=== PATIENT | male | born 1940 | race Hispanic/Latino ===

== ENCOUNTER 2017-05-30 12:51 | Outpatient (CLI) | payer MEDICARE ==
[2017-05-30 14:01] LABS: INR-International Normal Ratio 2.4; Prothrombin Time 26.6 SEC (12.0-14.7)
[2017-05-30 14:12] LABS: ALT (SGPT) 31 U/L (8-55); AST (SGOT) 24 U/L (5-34); Alkaline Phosphatase 74 U/L (40-150); Anion Gap 13 mmol/L (10-20); BUN (Urea Nitrogen) 20 mg/dL (8.4-25.7); Bilirubin, Total 0.6 mg/dL (0.2-1.2); Calc. Creatinine Clearance 0 mL/min (70-130); Calcium 9.3 mg/dL (7.8-10.44); Carbon Dioxide 25 mmol/L (23-31); Cardiac Risk 6.2 (Less than 4.5); Chloride 109 mmol/L (98-107); Cholesterol 216 mg/dl (< 200 Desired); Estimated GFR-MDRD 55; Globulin 2.9 g/dL (2.4-3.5); Glucose 103 mg/dL (83-110); HDL Cholesterol 35 mg/dL (>60 Neg Risk); LDL Cholesterol, Calculated 133 mg/dL; Potassium 4.1 mmol/L (3.5-5.1); Protein, Total 6.9 g/dL (5.8-8.1); Sodium 143 mmol/L (136-145); Triglycerides 241 mg/dL (Less than 150)
[2017-05-30 14:19] LABS: #Basophils 0.1 thou/uL (0.0-0.2); #Eosinphils 0.2 thou/uL (0.0-0.7); #Lymphocytes 1.9 thou/uL (1.20-3.40); #Monocytes 0.6 thou/uL (0.11-0.59); #Neutrophils 4.4 thou/uL (1.40-6.50); %Basophils 0.8 % (0.0-1.0); %Lymphocytes 26.8 % (21.0-51.0); %Neutrophils 61.4 % (42.0-75.0); Hemoglobin 15.5 g/dL (14.0-18.0); Mean Corpuscular HGB CONC 33.4 g/dL (32.0-36.0); Mean Corpuscular Hemoglobin 29.8 pg (27.0-31.0); Mean Corpuscular Volume 89.3 fl (80.0-94.0); Mean Platelet Volume 7.7 fL (7.4-10.4); Platelet Count 184 thou/uL (130-400); RBC Distribution Width 13.6 % (11.5-14.5); Red Blood Cell (RBC) Count 5.19 mill/uL (4.70-6.10); White Blood Cell (WBC) Count 7.1 thou/uL (4.8-10.8)
== END 2017-05-30 12:52 | disposition home or self-care (01) ==
LOC: MADLABBHPM 12:51
PROVIDERS: ATTEND Family Medicine
DX: Z51.81 Encounter for therapeutic drug level monitoring (principal); I10 Essential (primary) hypertension; Z79.01 Long term (current) use of anticoagulants; Z79.899 Other long term (current) drug therapy
CPT/HCPCS: 36415; 80053; 80061; 85025; 85610

== ENCOUNTER 2017-07-10 12:59 | Outpatient (CLI) | payer MEDICARE ==
[2017-07-10 13:36] LABS: INR-International Normal Ratio 1.8; Prothrombin Time 21.5 SEC (12.0-14.7)
[2017-07-10 14:08] LABS: Band 1 % (5-11); Eosinophils 3 % (0-10); Hemoglobin 14.7 g/dL (14.0-18.0); Lymphocytes 23 % (21-51); MDiff Complete? YES; Mean Corpuscular HGB CONC 32.9 g/dL (32.0-36.0); Mean Corpuscular Hemoglobin 28.8 pg (27.0-31.0); Mean Corpuscular Volume 87.7 fl (80.0-94.0); Mean Platelet Volume 6.9 fL (7.4-10.4); Monocytes 3 % (0-10); Neutrophil 70 % (42-75); PLT Morphology Comment Appears Adequate; Platelet Count 215 thou/uL (130-400); Red Blood Cell (RBC) Count 5.08 mill/uL (4.70-6.10); White Blood Cell (WBC) Count 7.2 thou/uL (4.8-10.8)
== END 2017-07-10 13:00 | disposition home or self-care (01) ==
LOC: MADLABBHPM 12:59
PROVIDERS: ATTEND Family Medicine
DX: Z51.81 Encounter for therapeutic drug level monitoring (principal); Z79.01 Long term (current) use of anticoagulants
CPT/HCPCS: 36415; 85025; 85610

== ENCOUNTER 2017-08-03 12:45 | Outpatient (CLI) | payer MEDICARE ==
[2017-08-03 13:49] LABS: #Eosinphils 0.2 thou/uL (0.0-0.7); #Monocytes 0.7 thou/uL (0.11-0.59); #Neutrophils 4.1 thou/uL (1.40-6.50); %Basophils 0.7 % (0.0-1.0); %Eosinophils 2.9 % (0.0-10.0); %Lymphocytes 28.4 % (21.0-51.0); %Monocytes 9.4 % (0.0-10.0); %Neutrophils 58.6 % (42.0-75.0); Hemoglobin 14.6 g/dL (14.0-18.0); INR-International Normal Ratio 2.7; Mean Corpuscular HGB CONC 33.1 g/dL (32.0-36.0); Mean Corpuscular Hemoglobin 29.1 pg (27.0-31.0); Mean Corpuscular Volume 87.9 fl (80.0-94.0); Mean Platelet Volume 7.8 fL (7.4-10.4); Platelet Count 156 thou/uL (130-400); Prothrombin Time 30.1 SEC (12.0-14.7); RBC Distribution Width 12.9 % (11.5-14.5); Red Blood Cell (RBC) Count 5.03 mill/uL (4.70-6.10); White Blood Cell (WBC) Count 6.9 thou/uL (4.8-10.8)
== END 2017-08-03 12:46 | disposition home or self-care (01) ==
LOC: MADLABBHPM 12:45
PROVIDERS: ATTEND Family Medicine
DX: Z51.81 Encounter for therapeutic drug level monitoring (principal); Z79.01 Long term (current) use of anticoagulants
CPT/HCPCS: 36415; 85025; 85610

== ENCOUNTER 2017-09-18 13:03 | Outpatient (CLI) | payer MEDICARE ==
[2017-09-18 13:22] LABS: #Basophils 0.1 thou/uL (0.0-0.2); #Eosinphils 0.1 thou/uL (0.0-0.7); #Lymphocytes 2.1 thou/uL (1.20-3.40); #Monocytes 0.7 thou/uL (0.11-0.59); #Neutrophils 4.2 thou/uL (1.40-6.50); %Basophils 1.1 % (0.0-1.0); %Lymphocytes 29.3 % (21.0-51.0); %Monocytes 9.7 % (0.0-10.0); %Neutrophils 57.9 % (42.0-75.0); Hemoglobin 14.7 g/dL (14.0-18.0); Mean Corpuscular HGB CONC 33.4 g/dL (32.0-36.0); Mean Corpuscular Hemoglobin 29.5 pg (27.0-31.0); Mean Corpuscular Volume 88.2 fL (78.0-98.0); Mean Platelet Volume 7.4 fL (7.4-10.4); Platelet Count 187 thou/uL (130-400); RBC Distribution Width 12.9 % (11.5-14.5); Red Blood Cell (RBC) Count 4.99 mill/uL (4.70-6.10); White Blood Cell (WBC) Count 7.2 thou/uL (4.8-10.8)
[2017-09-18 13:28] LABS: INR-International Normal Ratio 2.6; Prothrombin Time 27.9 SEC (12.0-14.7)
== END 2017-09-18 13:04 | disposition home or self-care (01) ==
LOC: MADLABBHPM 13:03
PROVIDERS: ATTEND Family Medicine
DX: Z51.81 Encounter for therapeutic drug level monitoring (principal); Z79.01 Long term (current) use of anticoagulants
CPT/HCPCS: 36415; 85025; 85610

== ENCOUNTER 2017-12-15 14:25 | Outpatient (CLI) | payer MEDICARE, MEDICAID ==
[2017-12-15 14:45] LABS: Prothrombin Time 22.4 SEC (12.0-14.7)
== END 2017-12-15 14:26 | disposition home or self-care (01) ==
LOC: MADLABBHPM 14:25
PROVIDERS: ATTEND Family Medicine
DX: Z51.81 Encounter for therapeutic drug level monitoring (principal); Z79.01 Long term (current) use of anticoagulants
CPT/HCPCS: 36415; 85610

== ENCOUNTER 2017-12-21 15:46 | Emergency (ER) | payer MEDICARE, MEDICAID | END 2017-12-21 16:35 | disposition home or self-care (01) | LOC: MADERS 15:46 | DX: K52.9 Noninfective gastroenteritis and colitis, unspecified (principal); Z86.718 Personal history of other venous thrombosis and embolism; I10 Essential (primary) hypertension; Z79.899 Other long term (current) drug therapy | CPT/HCPCS: 99283 ==

== ENCOUNTER 2017-12-21 23:53 | Emergency (ER) | payer MEDICARE, MEDICAID ==
[~2017-12-21 23:53] MED LIST: Sodium Chloride 0.9% 1,000 ML BAG ONE
[2017-12-22] MEDS ORDERED: Dicyclomine 10 MG CAP ONE (00:10)
[2017-12-22 00:51] LABS: ALT (SGPT) 18 U/L (8-55); AST (SGOT) 17 U/L (5-34); Albumin 3.9 g/dL (3.4-4.8); Alkaline Phosphatase 76 U/L (40-150); Anion Gap 16 mmol/L (10-20); BUN (Urea Nitrogen) 24 mg/dL (8.4-25.7); Bilirubin, Total 0.6 mg/dL (0.2-1.2); Calc. Creatinine Clearance 0 mL/min (70-130); Carbon Dioxide 27 mmol/L (23-31); Chloride 103 mmol/L (98-107); Estimated GFR-MDRD 37; Globulin 2.9 g/dL (2.4-3.5); Glucose 111 mg/dL (83-110); Potassium 4.1 mmol/L (3.5-5.1); Protein, Total 6.8 g/dL (5.8-8.1); Sodium 142 mmol/L (136-145)
[2017-12-22 00:57] LABS: Band 1 % (5-11); Eosinophils 1 % (0-10); Hemoglobin 14.7 g/dL (14.0-18.0); Lymphocytes 20 % (21-51); MDiff Complete? YES; Mean Corpuscular HGB CONC 33.1 g/dL (32.0-36.0); Mean Corpuscular Hemoglobin 29.8 pg (27.0-31.0); Mean Corpuscular Volume 89.9 fL (78.0-98.0); Mean Platelet Volume 7.9 fL (7.4-10.4); Monocytes 12 % (0-10); Neutrophil 56 % (42-75); PLT Morphology Comment Appears Adequate; Platelet Count 196 thou/uL (130-400); RBC Distribution Width 12.9 % (11.5-14.5); RBC Morphology Normal; Reactive Lymphocytes 10 % (0-10); Red Blood Cell (RBC) Count 4.95 mill/uL (4.70-6.10); White Blood Cell (WBC) Count 8.6 thou/uL (4.8-10.8)
[2017-12-22] MEDS ORDERED: Morphine 4 MG/ML VIAL ONE (02:07)
[2017-12-22] MEDS ORDERED: Ondansetron PF 4 MG/2 ML Vial ONE (02:08)
[2017-12-22 02:14] LABS: INR-International Normal Ratio 2.8; PTT 49.8 SEC (22.9-36.1); Prothrombin Time 29.3 SEC (12.0-14.7)
--- NOTE | 2017-12-22 08:23 | CT ---
PRELIMINARY REPORT/[facility]/EMERGENTY AFTER-HOURS PROCEDURE CT Abdomen and Pelvis Without Intravenous Contrast EXAM DATE/TIME: 12/22/2017 12:50 AM CLINICAL HISTORY: 77 years old, male; Pain; Abdominal pain TECHNIQUE: Axial computed tomography images of the abdomen and pelvis without intravenous contrast. All CT scans at this facility use at least one of these dose optimization techniques: automated exposure control; mA and/or kV adjustment per patient size (includes targeted exams where dose is matched to clinical indication); or iterative reconstruction. COMPARISON: No relevant prior studies available. FINDINGS: Lower thorax: Minimal bibasilar atelectasis and/or scarring. Small-sized hiatal hernia. ABDOMEN: Liver: Normal. Gallbladder and bile ducts: Normal Pancreas: Normal. Spleen: Normal. Adrenals: Normal. Kidneys and ureters: Bilateral simple renal cysts, the largest on the left measuring approximately 2. 5 cm in diameter. Stomach and bowel: Scattered colonic diverticulosis. Multiple loops of moderately dilated mid small b owel, with apparent focal transition to normal caliber small bowel within the right abdomen, compatib le with small bowel obstruction. Appendix: Appendix is normal. PELVIS: Bladder: Urinary bladder partially decompressed. Reproductive: Prostate gland is large, measuring 7.3 cm in AP diameter by 6.6 cm in transverse dimens ion. ABDOMEN and PELVIS: Intraperitoneal space: Normal. No free air. No significant fluid collection. Bones/joints: Multilevel thoracolumbar spine degenerative changes. Soft tissues: Small fat-containing inguinal hernias, without acute complications. Vasculature: Inferior vena cava filter in place. Lymph nodes: Normal. No enlarged lymph nodes. IMPRESSION: Multiple loops of moderately dilated mid small bowel, with apparent focal transition to normal calibe r small bowel within the right abdomen, compatible with small bowel obstruction. Thank you for allowing us to participate in the care of your patient. Dictated and Authenticated by: Ayo Franklin MD 12/22/2017 1:43 AM Central Time ([place] & [place]) FINAL REPORT CT ABDOMEN AND PELVIS WITHOUT CONTRAST: I agree with the preliminary report given by Dr. Ayo Franklin of [facility]. POS: [facility]
== END 2017-12-22 03:59 | disposition short-term general hospital (02) ==
LOC: MADERS 23:53
DX: K56.609 Unspecified intestinal obstruction, unspecified as to partial versus complete obstruction (principal); Z86.718 Personal history of other venous thrombosis and embolism; I10 Essential (primary) hypertension; Z79.899 Other long term (current) drug therapy
CPT/HCPCS: 36415; 74176; 80053; 83605; 85025; 85610; 85730; 86850; 86900; 86901; 96361; 96374; 96375; 99283; J2270; J2405; J7050

== ENCOUNTER 2018-02-28 12:07 | Outpatient (CLI) | payer MEDICARE, MEDICAID ==
[2018-02-28 13:02] LABS: INR-International Normal Ratio 2.5; Prothrombin Time 26.8 SEC (12.0-14.7)
== END 2018-02-28 12:08 | disposition home or self-care (01) ==
LOC: MADLABBHPM 12:07
PROVIDERS: ATTEND Family Medicine
DX: Z51.81 Encounter for therapeutic drug level monitoring (principal); Z79.01 Long term (current) use of anticoagulants
CPT/HCPCS: 36415; 85610

== ENCOUNTER 2018-04-25 08:58 | Outpatient (CLI) | payer MEDICAID, MEDICARE ==
[2018-04-25 09:32] LABS: ALT (SGPT) 29 U/L (8-55); AST (SGOT) 21 U/L (5-34); Albumin 4.3 g/dL (3.4-4.8); Alkaline Phosphatase 90 U/L (40-150); Anion Gap 11 mmol/L (10-20); BUN (Urea Nitrogen) 17 mg/dL (8.4-25.7); Bilirubin, Total 0.4 mg/dL (0.2-1.2); Calc. Creatinine Clearance 0 mL/min (70-130); Calcium 9.2 mg/dL (7.8-10.44); Carbon Dioxide 29 mmol/L (23-31); Cardiac Risk 4.2 (Less than 4.5); Chloride 108 mmol/L (98-107); Cholesterol 152 mg/dl (< 200 Desired); Estimated GFR-MDRD 54; Globulin 2.9 g/dL (2.4-3.5); Glucose 96 mg/dL (83-110); HDL Cholesterol 36 mg/dL (>60 Neg Risk); LDL Cholesterol, Calculated 83 mg/dL; Potassium 4.3 mmol/L (3.5-5.1); Protein, Total 7.2 g/dL (5.8-8.1); Sodium 144 mmol/L (136-145); Triglycerides 167 mg/dL (Less than 150); Uric Acid 6.8 mg/dL (3.5-7.2)
[2018-04-25 09:34] LABS: INR-International Normal Ratio 1.3; Prothrombin Time 15.9 SEC (12.0-14.7)
== END 2018-04-25 08:59 | disposition home or self-care (01) ==
LOC: MADLABBHPM 08:58
PROVIDERS: ATTEND Family Medicine
DX: Z51.81 Encounter for therapeutic drug level monitoring (principal); E78.5 Hyperlipidemia, unspecified; E79.0 Hyperuricemia without signs of inflammatory arthritis and tophaceous disease; Z79.01 Long term (current) use of anticoagulants
CPT/HCPCS: 36415; 80053; 80061; 84550; 85610

== ENCOUNTER 2018-05-11 11:02 | Outpatient (CLI) | payer MEDICARE ==
[2018-05-11 11:29] LABS: INR-International Normal Ratio 1.5; Prothrombin Time 17.9 SEC (12.0-14.7)
[2018-05-11 11:38] LABS: ALT (SGPT) 37 U/L (8-55); AST (SGOT) 29 U/L (5-34); Albumin 4.2 g/dL (3.4-4.8); Alkaline Phosphatase 85 U/L (40-150); Anion Gap 13 mmol/L (10-20); BUN (Urea Nitrogen) 17 mg/dL (8.4-25.7); Bilirubin, Total 0.5 mg/dL (0.2-1.2); Calc. Creatinine Clearance 0 mL/min (70-130); Calcium 9.2 mg/dL (7.8-10.44); Carbon Dioxide 23 mmol/L (23-31); Chloride 112 mmol/L (98-107); Estimated GFR-MDRD 60; Globulin 2.8 g/dL (2.4-3.5); Glucose 93 mg/dL (83-110); Potassium 4.2 mmol/L (3.5-5.1); Sodium 144 mmol/L (136-145)
== END 2018-05-11 11:03 | disposition home or self-care (01) ==
LOC: MADLABBHPM 11:02
PROVIDERS: ATTEND Family Medicine
DX: E03.9 Hypothyroidism, unspecified (principal); E78.5 Hyperlipidemia, unspecified
CPT/HCPCS: 36415; 80053; 84443; 85610

== ENCOUNTER 2018-05-23 14:03 | Outpatient (CLI) | payer MEDICARE ==
[2018-05-23 14:43] LABS: INR-International Normal Ratio 1.9; Prothrombin Time 21.8 SEC (12.0-14.7)
--- NOTE | 2018-05-23 16:17 | RAD ---
PA AND LATERAL OF THE CHEST: 05/23/18 INDICATION: Bronchitis. COMPARISON: Prior exam dated 12/22/17. FINDINGS: There is mild cardiomegaly. No definite air space consolidation, pleural effusion, or pneumothorax is evident. No acute osseous abnormality is evident. IMPRESSION: Mild cardiomegaly without evidence of cardiac decompensation. POS: [facility]
== END 2018-05-23 14:04 | disposition home or self-care (01) ==
LOC: MADLABBHPM 14:03
PROVIDERS: ATTEND Family Medicine
DX: J20.9 Acute bronchitis, unspecified (principal); Z51.81 Encounter for therapeutic drug level monitoring; I51.7 Cardiomegaly; Z87.09 Personal history of other diseases of the respiratory system; Z79.01 Long term (current) use of anticoagulants
CPT/HCPCS: 36415; 71046; 85610

== ENCOUNTER 2018-06-26 09:48 | Outpatient (CLI) | payer MEDICARE ==
[2018-06-26 10:22] LABS: INR-International Normal Ratio 3.2; Prothrombin Time 32.4 SEC (12.0-14.7)
[2018-06-26 10:44] LABS: ALT (SGPT) 34 U/L (8-55); AST (SGOT) 24 U/L (5-34); Albumin 4.2 g/dL (3.4-4.8); Alkaline Phosphatase 96 U/L (40-150); Anion Gap 10 mmol/L (10-20); BUN (Urea Nitrogen) 18 mg/dL (8.4-25.7); Bilirubin, Total 0.4 mg/dL (0.2-1.2); Calc. Creatinine Clearance 0 mL/min (70-130); Calcium 8.7 mg/dL (7.8-10.44); Carbon Dioxide 25 mmol/L (23-31); Cardiac Risk 4.3 (Less than 4.5); Chloride 110 mmol/L (98-107); Cholesterol 141 mg/dl (< 200 Desired); Estimated GFR-MDRD 53; Globulin 2.6 g/dL (2.4-3.5); Glucose 102 mg/dL (83-110); HDL Cholesterol 33 mg/dL (>60 Neg Risk); LDL Cholesterol, Calculated 69 mg/dL; Protein, Total 6.8 g/dL (5.8-8.1); Sodium 141 mmol/L (136-145); Triglycerides 196 mg/dL (Less than 150); Uric Acid 6.7 mg/dL (3.5-7.2)
== END 2018-06-26 09:49 | disposition home or self-care (01) ==
LOC: MADLABBHPM 09:48
PROVIDERS: ATTEND Family Medicine
DX: Z51.81 Encounter for therapeutic drug level monitoring (principal); E78.5 Hyperlipidemia, unspecified; E79.0 Hyperuricemia without signs of inflammatory arthritis and tophaceous disease; Z79.01 Long term (current) use of anticoagulants
CPT/HCPCS: 80053; 80061; 84550; 85610

== ENCOUNTER 2018-08-02 11:33 | Outpatient (CLI) | payer MEDICARE ==
[2018-08-02 12:30] LABS: INR-International Normal Ratio 2.7; Prothrombin Time 28.8 SEC (12.0-14.7)
== END 2018-08-02 11:34 | disposition home or self-care (01) ==
LOC: MADLAB 11:33
PROVIDERS: ATTEND Family Medicine
DX: Z51.81 Encounter for therapeutic drug level monitoring (principal); Z79.01 Long term (current) use of anticoagulants
CPT/HCPCS: 36415; 85610

== ENCOUNTER 2018-11-19 13:05 | Outpatient (CLI) | payer MEDICARE ==
[2018-11-19 13:41] LABS: INR-International Normal Ratio 2.3; Prothrombin Time 25.3 SEC (12.0-14.7)
== END 2018-11-19 13:06 | disposition home or self-care (01) ==
LOC: MADLABBHPM 13:05
PROVIDERS: ATTEND Family Medicine
DX: Z51.81 Encounter for therapeutic drug level monitoring (principal); Z79.01 Long term (current) use of anticoagulants
CPT/HCPCS: 85610

== ENCOUNTER 2019-03-07 10:35 | Outpatient (CLI) | payer MEDICARE ==
[2019-03-07 10:56] LABS: INR-International Normal Ratio 1.5; Prothrombin Time 18.3 SEC (12.0-14.7)
== END 2019-03-07 10:36 | disposition home or self-care (01) ==
LOC: MADLABBHPM 10:35
PROVIDERS: ATTEND Family Medicine
DX: Z51.81 Encounter for therapeutic drug level monitoring (principal); Z79.01 Long term (current) use of anticoagulants
CPT/HCPCS: 36415; 85610

== ENCOUNTER 2019-04-16 10:32 | Outpatient (CLI) | payer MEDICARE ==
[2019-04-16 10:54] LABS: INR-International Normal Ratio 2.1
== END 2019-04-16 10:33 | disposition home or self-care (01) ==
LOC: MADLABBHPM 10:32
PROVIDERS: ATTEND Family Medicine
DX: Z51.81 Encounter for therapeutic drug level monitoring (principal); Z79.01 Long term (current) use of anticoagulants
CPT/HCPCS: 36415; 85610

== ENCOUNTER 2019-07-29 15:52 | Outpatient (CLI) | payer MEDICARE ==
[2019-07-29 16:16] LABS: INR-International Normal Ratio 2.5; Prothrombin Time 26.4 sec (12.0-14.7)
== END 2019-07-29 15:53 | disposition home or self-care (01) ==
LOC: MADLAB 15:52
PROVIDERS: ATTEND Family Medicine
DX: Z51.81 Encounter for therapeutic drug level monitoring (principal); Z79.01 Long term (current) use of anticoagulants
CPT/HCPCS: 36415; 85610

== ENCOUNTER 2019-10-21 10:50 | Outpatient (CLI) | payer MEDICARE ==
[2019-10-21 11:18] LABS: Prothrombin Time 30.9 sec (12.0-14.7)
== END 2019-10-21 10:51 | disposition home or self-care (01) ==
LOC: MADLABBHPM 10:50
PROVIDERS: ATTEND Family Medicine
DX: Z51.81 Encounter for therapeutic drug level monitoring (principal); Z79.01 Long term (current) use of anticoagulants
CPT/HCPCS: 36415; 85610

== ENCOUNTER 2019-10-24 11:34 | Outpatient (CLI) | payer MEDICARE ==
[2019-10-24 11:59] LABS: INR-International Normal Ratio 3.1; Prothrombin Time 31.3 sec (12.0-14.7)
== END 2019-10-24 11:35 | disposition home or self-care (01) ==
LOC: MADLABBHPM 11:34
PROVIDERS: ATTEND Family Medicine
DX: Z51.81 Encounter for therapeutic drug level monitoring (principal); Z79.899 Other long term (current) drug therapy; Z79.01 Long term (current) use of anticoagulants
CPT/HCPCS: 36415; 85610

== ENCOUNTER 2019-11-04 11:28 | Outpatient (CLI) | payer MEDICARE ==
[2019-11-04 11:47] LABS: INR-International Normal Ratio 2.6; Prothrombin Time 27.7 sec (12.0-14.7)
== END 2019-11-04 11:29 | disposition home or self-care (01) ==
LOC: MADLAB 11:28
PROVIDERS: ATTEND Family Medicine
DX: Z51.81 Encounter for therapeutic drug level monitoring (principal); Z79.01 Long term (current) use of anticoagulants
CPT/HCPCS: 36415; 85610

== ENCOUNTER 2019-12-30 11:36 | Outpatient (CLI) | payer MEDICARE ==
[2019-12-30 12:20] LABS: INR-International Normal Ratio 2.2; Prothrombin Time 25.2 sec (12.0-14.7)
== END 2019-12-30 11:37 | disposition home or self-care (01) ==
LOC: MADLABBHPM 11:36
PROVIDERS: ATTEND Family Medicine
DX: Z51.81 Encounter for therapeutic drug level monitoring (principal); Z79.899 Other long term (current) drug therapy
CPT/HCPCS: 36415; 85610

== ENCOUNTER 2020-02-05 11:56 | Outpatient (CLI) | payer MEDICARE ==
[2020-02-05 12:31] LABS: INR-International Normal Ratio 2.1; Prothrombin Time 24.4 sec (12.0-14.7)
== END 2020-02-05 11:57 | disposition home or self-care (01) ==
LOC: MADLAB 11:56
PROVIDERS: ATTEND Family Medicine
DX: Z51.81 Encounter for therapeutic drug level monitoring (principal); Z79.01 Long term (current) use of anticoagulants
CPT/HCPCS: 36415; 85610

== ENCOUNTER 2020-04-17 10:23 | Outpatient (CLI) | payer MEDICARE ==
[2020-04-17 11:09] LABS: INR-International Normal Ratio 2.9; Prothrombin Time 31.1 sec (12.0-14.7)
== END 2020-04-17 10:24 | disposition home or self-care (01) ==
LOC: MADLAB 10:23
PROVIDERS: ATTEND Family Medicine
DX: Z51.81 Encounter for therapeutic drug level monitoring (principal); Z79.899 Other long term (current) drug therapy
CPT/HCPCS: 36415; 85610

== ENCOUNTER 2020-05-04 10:47 | Outpatient (CLI) | payer MEDICARE ==
[2020-05-04 11:03] LABS: #Basophils 0.1 thou/uL (0.0-0.2); #Eosinphils 0.1 thou/uL (0.0-0.7); #Lymphocytes 2.1 thou/uL (1.20-3.40); #Monocytes 0.7 thou/uL (0.11-0.59); #Neutrophils 3.7 thou/uL (1.40-6.50); %Basophils 0.9 % (0.0-1.0); %Eosinophils 2.2 % (0.0-10.0); %Lymphocytes 31.2 % (21.0-51.0); %Monocytes 10.3 % (0.0-10.0); %Neutrophils 55.4 % (42.0-75.0); Hemoglobin 15.5 g/dL (14.0-18.0); Mean Corpuscular HGB CONC 32.5 g/dL (32.0-36.0); Mean Corpuscular Hemoglobin 29.9 pg (27.0-31.0); Mean Corpuscular Volume 92.1 fL (78.0-98.0); Mean Platelet Volume 7.4 fL (7.4-10.4); Platelet Count 167 thou/uL (130-400); RBC Distribution Width 13.5 % (11.5-14.5); Red Blood Cell (RBC) Count 5.17 mill/uL (4.70-6.10); White Blood Cell (WBC) Count 6.6 thou/uL (4.8-10.8)
[2020-05-04 11:11] LABS: Prothrombin Time 22.8 sec (12.0-14.7)
[2020-05-04 11:23] LABS: ALT (SGPT) 45 U/L (8-55); AST (SGOT) 28 U/L (5-34); Alkaline Phosphatase 86 U/L (40-110); Anion Gap 13 mmol/L (10-20); BUN (Urea Nitrogen) 20 mg/dL (8.4-25.7); Bilirubin, Total 0.4 mg/dL (0.2-1.2); Calc. Creatinine Clearance 0 mL/min (70-130); Calcium 8.5 mg/dL (7.8-10.44); Carbon Dioxide 24 mmol/L (23-31); Cardiac Risk 5.9 (Less than 4.5); Chloride 108 mmol/L (98-107); Cholesterol 205 mg/dl (< 200 Desired); Globulin 2.8 g/dL (2.4-3.5); Glucose 102 mg/dL (83-110); HDL Cholesterol 35 mg/dL (>60 Neg Risk); LDL Cholesterol, Calculated 125 mg/dL; Potassium 4.2 mmol/L (3.5-5.1); Protein, Total 6.8 g/dL (5.8-8.1); Sodium 141 mmol/L (136-145); Triglycerides 227 mg/dL (Less than 150); Uric Acid 5.6 mg/dL (3.5-7.2)
[2020-05-04 11:45] LABS: Thyroid Stimulating Hormone 2.685 uIU/mL (0.35-4.94)
[2020-05-04 17:55] LABS: Free T4 (Free Thyroxine) 0.93 ng/dL (0.70-1.48)
== END 2020-05-04 10:48 | disposition home or self-care (01) ==
LOC: MADLAB 10:47
PROVIDERS: ATTEND Family Medicine
DX: Z51.81 Encounter for therapeutic drug level monitoring (principal); Z79.01 Long term (current) use of anticoagulants
CPT/HCPCS: 36415; 80053; 80061; 84439; 84443; 84550; 85025; 85610

== ENCOUNTER 2020-06-01 11:40 | Outpatient (CLI) | payer MEDICARE ==
[2020-06-01 12:05] LABS: Prothrombin Time 23.3 sec (12.0-14.7)
== END 2020-06-01 11:41 | disposition home or self-care (01) ==
LOC: MADLAB 11:40
PROVIDERS: ATTEND Family Medicine
DX: Z51.81 Encounter for therapeutic drug level monitoring (principal); Z79.01 Long term (current) use of anticoagulants
CPT/HCPCS: 36415; 85610

== ENCOUNTER 2020-07-10 11:10 | Outpatient (CLI) | payer MEDICARE ==
[2020-07-10 11:31] LABS: INR-International Normal Ratio 2.8; Prothrombin Time 30.5 sec (12.0-14.7)
== END 2020-07-10 11:11 | disposition home or self-care (01) ==
LOC: MADLAB 11:10
PROVIDERS: ATTEND Family Medicine
DX: Z51.81 Encounter for therapeutic drug level monitoring (principal); Z79.01 Long term (current) use of anticoagulants
CPT/HCPCS: 36415; 85610

== ENCOUNTER 2020-08-12 09:22 | Outpatient (CLI) | payer MEDICARE | END 2020-08-12 09:23 | disposition home or self-care (01) | LOC: MADLAB 09:22 | PROVIDERS: ATTEND Family Medicine | DX: Z51.81 Encounter for therapeutic drug level monitoring (principal); Z79.01 Long term (current) use of anticoagulants | CPT/HCPCS: 36415; 85610 ==

== ENCOUNTER 2020-08-17 13:15 | Outpatient (CLI) | payer MEDICARE ==
[2020-08-17 13:33] LABS: INR-International Normal Ratio 1.9; Prothrombin Time 22.3 sec (12.0-14.7)
== END 2020-08-17 13:16 | disposition home or self-care (01) ==
LOC: MADLAB 13:15
PROVIDERS: ATTEND Family Medicine
DX: Z51.81 Encounter for therapeutic drug level monitoring (principal); Z79.01 Long term (current) use of anticoagulants
CPT/HCPCS: 36415; 85610

== ENCOUNTER 2020-09-03 08:44 | Outpatient (CLI) | payer MEDICARE ==
[2020-09-03 09:26] LABS: INR-International Normal Ratio 2.3; Prothrombin Time 26.1 sec (12.0-14.7)
== END 2020-09-03 08:45 | disposition home or self-care (01) ==
LOC: MADLAB 08:44
PROVIDERS: ATTEND Family Medicine
DX: Z51.81 Encounter for therapeutic drug level monitoring (principal); Z79.01 Long term (current) use of anticoagulants
CPT/HCPCS: 36415; 85610

== ENCOUNTER 2020-10-29 13:29 | Outpatient (CLI) | payer MEDICARE ==
[2020-10-29 14:15] LABS: INR-International Normal Ratio 2.9; Prothrombin Time 30.4 sec (12.0-14.7)
== END 2020-10-29 13:30 | disposition home or self-care (01) ==
LOC: MADLABBHPM 13:29
PROVIDERS: ATTEND Family Medicine
DX: E78.2 Mixed hyperlipidemia (principal); E03.9 Hypothyroidism, unspecified; E79.0 Hyperuricemia without signs of inflammatory arthritis and tophaceous disease; Z79.899 Other long term (current) drug therapy
CPT/HCPCS: 36415; 85610

== ENCOUNTER 2020-12-17 12:06 | Outpatient (CLI) | payer MEDICARE ==
[2020-12-17 12:44] LABS: INR-International Normal Ratio 2.5; Prothrombin Time 27.1 sec (12.0-14.7)
== END 2020-12-17 12:07 | disposition home or self-care (01) ==
LOC: MADLAB 12:06
PROVIDERS: ATTEND Family Medicine
DX: Z51.81 Encounter for therapeutic drug level monitoring (principal); Z79.01 Long term (current) use of anticoagulants
CPT/HCPCS: 36415; 85610

== ENCOUNTER 2021-01-07 11:01 | Outpatient (CLI) | payer MEDICARE ==
[2021-01-07 11:30] LABS: INR-International Normal Ratio 2.4; Prothrombin Time 26.2 sec (12.0-14.7)
== END 2021-01-07 11:02 | disposition home or self-care (01) ==
LOC: MADLAB 11:01
PROVIDERS: ATTEND Family Medicine
DX: Z51.81 Encounter for therapeutic drug level monitoring (principal); Z79.01 Long term (current) use of anticoagulants
CPT/HCPCS: 36415; 85610

== ENCOUNTER 2021-02-08 13:43 | Outpatient (CLI) | payer MEDICARE ==
[2021-02-08 14:05] LABS: INR-International Normal Ratio 2.6; Prothrombin Time 28.5 sec (12.0-14.7)
== END 2021-02-08 13:44 | disposition home or self-care (01) ==
LOC: MADLAB 13:43
PROVIDERS: ATTEND Family Medicine
DX: Z51.81 Encounter for therapeutic drug level monitoring (principal); Z79.01 Long term (current) use of anticoagulants
CPT/HCPCS: 36415; 85610

== ENCOUNTER 2021-05-03 11:35 | Outpatient (CLI) | payer MEDICARE ==
[2021-05-03 11:57] LABS: INR-International Normal Ratio 2.7; Prothrombin Time 28.9 sec (12.0-14.7)
== END 2021-05-03 11:36 | disposition home or self-care (01) ==
LOC: MADLAB 11:35
PROVIDERS: ATTEND Family Medicine
DX: Z51.81 Encounter for therapeutic drug level monitoring (principal); Z79.02 Long term (current) use of antithrombotics/antiplatelets
CPT/HCPCS: 36415; 85610

== ENCOUNTER 2021-09-07 13:12 | Outpatient (CLI) | payer MEDICARE ==
[2021-09-07 13:16] LABS: INR-International Normal Ratio 2.7; Prothrombin Time 28.8 sec (12.0-14.7)
== END 2021-09-07 13:13 | disposition home or self-care (01) ==
LOC: MADLAB 13:12
PROVIDERS: ATTEND Family Medicine
DX: Z51.81 Encounter for therapeutic drug level monitoring (principal); Z79.01 Long term (current) use of anticoagulants; Z79.02 Long term (current) use of antithrombotics/antiplatelets
CPT/HCPCS: 85610

== ENCOUNTER 2021-10-18 09:15 | Outpatient (CLI) | payer MEDICARE, OTHER ==
[2021-10-18 09:29] LABS: INR-International Normal Ratio 2.3; Prothrombin Time 25.9 sec (12.0-14.7)
== END 2021-10-18 09:16 | disposition home or self-care (01) ==
LOC: MADLABBHPM 09:15 → MADLAB 09:16
PROVIDERS: ATTEND Family Medicine
DX: Z51.81 Encounter for therapeutic drug level monitoring (principal); Z79.02 Long term (current) use of antithrombotics/antiplatelets
CPT/HCPCS: 85610

== ENCOUNTER 2021-12-15 12:24 | Outpatient (CLI) | payer OTHER ==
[2021-12-15 13:01] LABS: INR-International Normal Ratio 2.3; Prothrombin Time 25.9 sec (12.0-14.7)
== END 2021-12-15 12:25 | disposition home or self-care (01) ==
LOC: MADLAB 12:24
PROVIDERS: ATTEND Family Medicine
DX: Z51.81 Encounter for therapeutic drug level monitoring (principal); Z79.02 Long term (current) use of antithrombotics/antiplatelets
CPT/HCPCS: 36415; 85610

== ENCOUNTER 2022-04-22 11:57 | Outpatient (CLI) | payer OTHER ==
[2022-04-22 12:18] LABS: INR-International Normal Ratio 2.3; Prothrombin Time 26.3 sec (12.0-14.7)
== END 2022-04-22 11:58 | disposition home or self-care (01) ==
LOC: MADLAB 11:57
PROVIDERS: ATTEND Family Medicine
DX: Z51.81 Encounter for therapeutic drug level monitoring (principal); Z79.02 Long term (current) use of antithrombotics/antiplatelets
CPT/HCPCS: 36415; 85610

== ENCOUNTER 2022-11-23 14:17 | Outpatient (CLI) | payer OTHER ==
[2022-11-23 15:01] LABS: INR-International Normal Ratio 2.7; Prothrombin Time 30.2 sec (12.0-14.7)
== END 2022-11-23 14:18 | disposition home or self-care (01) ==
LOC: MADLABBHPM 14:17
PROVIDERS: ATTEND Family Medicine
DX: Z51.81 Encounter for therapeutic drug level monitoring (principal); Z79.02 Long term (current) use of antithrombotics/antiplatelets
CPT/HCPCS: 36415; 85610